=== PATIENT | female | born 1990 | race Caucasian/White ===

== ENCOUNTER 2018-06-14 23:25 | Emergency (ER) | payer BC, MEDICAID ==
[~2018-06-14] VITALS: Ht 154.9 cm; Wt 117.9 kg
--- NOTE | 2018-06-14 23:28 | NUR ---
ATTEMPTED TO CALL PT FOR TRIAGE, PT WAS ON A TELEPHONE CONVERSATION AND ASKED TO BE CALLED LATER.
[2018-06-14 23:37] VITALS: BP 129/94
--- NOTE | 2018-06-14 23:41 | NUR ---
PT TAKEN TO BED 6
--- NOTE | 2018-06-14 23:57 | NUR ---
Dr. Stiles evaluating patient at bedside.
[2018-06-15 00:50] VITALS: BP 136/88
== END 2018-06-15 00:50 | disposition home or self-care (01) ==
LOC: MED 23:25
DX: S91.122A Laceration with foreign body of left great toe without damage to nail, initial encounter (principal); W45.8XXA Other foreign body or object entering through skin, initial encounter; Y93.89 Activity, other specified; Y92.89 Other specified places as the place of occurrence of the external cause; Y99.8 Other external cause status
CPT/HCPCS: 12001; 12041; 99283; 99284

== ENCOUNTER 2018-12-18 23:26 | Emergency (ER) | payer BC ==
[~2018-12-18] VITALS: Ht 162.6 cm; Wt 79.4 kg
--- NOTE | 2018-12-18 23:26 | NUR ---
PT ALEA ALFRED. TAKEN TO BED 12
[2018-12-18 23:33] VITALS: BP 135/79
--- NOTE | 2018-12-18 23:40 | NUR ---
PT BIBA C/O OF CHEST PAIN. PER PT CHEST PAIN WAS PROVOKED BY AN ARUGMENT. PAIN LEVEL WAS 8/10, SHARP NONRADIATING. PER PT PAIN LEVEL IS NOW 5/10, ON LEFT STERNAL AREA, NONRADIATING. PT AWAKE ALERT, CALM. VSS. PT HAS HX OF ANXIETY AND APPENDIX REMOVAL 2004. SAFETY MEASURES IN PLACE. WAITING FOR ERMD TO EVALUATE PT.
--- NOTE | 2018-12-18 23:44 | NUR ---
Note undone in EDM - 12/18/18 at 2348 by [facility] PT BIB BLS C/O OF CHEST PAIN. PER PT CHEST PAIN WAS PROVOKED BY AN ARUGMENT. PAIN LEVEL WAS 8/10, SHARP NONRADIATING. PER PT PAIN LEVEL IS NOW 5/10, ON LEFT STERNAL AREA, NONRADIATING. PT AWAKE ALERT, CALM. VSS. PT HAS HX OF ANXIETY AND APPENDIX REMOVAL 2004. SAFETY MEASURES IN PLACE. WAITING FOR ERMD TO EVALUATE PT.
[2018-12-18] MEDS ORDERED: LORazepam 2 MG/ML VIAL IM ONE (23:45)
[2018-12-19 00:30] VITALS: BP 108/61
--- NOTE | 2018-12-19 00:30 | NUR ---
Patient discharged with v/s stable. Written and verbal after care instructions given and explained. Patient verbalized understanding. Ambulatory with steady gait. All questions addressed prior to discharge. Advised to follow up with PMD.
== END 2018-12-19 00:30 | disposition home or self-care (01) ==
LOC: MED 23:26
DX: F41.9 Anxiety disorder, unspecified (principal)
CPT/HCPCS: 93005; 96372; 99283; J2060